=== PATIENT | female | born 1995 | race Caucasian/White ===

== ENCOUNTER 2017-03-11 19:04 | Emergency (ER) | payer MEDICAID ==
[~2017-03-11] VITALS: Ht 160 cm; Wt 75.7 kg
[2017-03-11 19:20] VITALS: BP_SYST 115
--- NOTE | 2017-03-11 19:25 | NUR ---
Pt placed to ER bed 05, report given to MEAGHAN Black.
[2017-03-11] MEDS ORDERED: ONDANSETRON HCL 4 MG/2 ML VIAL IVP ONE (19:30)
[2017-03-11] MEDS ORDERED: NACL 0.9% 1,000 ML IV ONE (19:30)
[2017-03-11] MEDS ORDERED: MAG HYDROX/AL HYDROX/SIMETH 30 ML, LIDOCAINE VISCOUS 2% 15ML (PO) 10 ML, BELLADONNA ALK... PO ONE ×3 (19:30)
[2017-03-11] MEDS ORDERED: KETOROLAC TROMETHAMINE 30 MG VIAL IVP ONE (19:30)
--- NOTE | 2017-03-11 19:30 | NUR ---
Pt states having upper abdominal pain since yesterday, states pain scale 7/10. Pt states cramping pain radiates down to lower abdomen area. Pt states having approximately 6 episodes of diarrhea since earlier today. Abdomen round, tender to palpation in LUQ and RUQ. Pt denies any other complaints.
--- NOTE | 2017-03-11 19:31 | NUR ---
ER Dr. Power at bedside examining patient.
[2017-03-11 19:43] LABS: EOSINOPHILS # (AUTO) 0.1 K/uL (0.0-0.4); MEAN CORPUSCULAR VOLUME 88 fL (79.0-98.0)
[2017-03-11 19:47] LABS: BASOPHILS # (AUTO) 0.1 K/uL (0.0-0.2); BASOPHILS % (AUTO) 0.7 % (0.0-2.0); EOSINOPHILS % (AUTO) 0.6 % (0.0-4.0); HEMOGLOBIN 13.3 g/dL (12.0-16.0); LYMPHOCYTES # (AUTO) 1.8 K/uL (1.0-5.5); LYMPHOCYTES % (AUTO) 13.8 % (20.5-51.5); MEAN CORPUSCULAR HEMOGLOBIN 29 pg (27-31); MEAN CORPUSCULAR HGB CONC 33 % (32-36); MONOCYTES # (AUTO) 0.9 K/uL (0.0-1.0); MONOCYTES % (AUTO) 6.5 % (1.7-9.3); NEUTROPHILS # (AUTO) 10.5 K/uL (1.8-7.7); NEUTROPHILS % (AUTO) 78.4 % (40.0-70.0); PLATELET COUNT (AUTO) 280 K/uL (130-430); RED BLOOD CELL COUNT(AUTO) 4.56 MIL/uL (4.2-6.2); RED CELL DISTRIBUTION WIDTH 12.4 % (9.0-15.0); WHITE BLOOD COUNT (AUTO) 13.4 K/uL (4.8-10.8)
--- NOTE | 2017-03-11 19:50 | NUR ---
MAGALIE Chavarria at bedside examining patient.
[2017-03-11 19:55] LABS: CALCIUM 9.2 mg/dL (8.4-11.0); CREATININE 1.05 mg/dL (0.55-1.30); POTASSIUM 3.9 mmol/L (3.5-5.1)
[2017-03-11 19:56] LABS: BILIRUBIN,URINE NEGATIVE (NEGATIVE); CLARITY/URINE SL CLOUDY (CLEAR); COLOR,URINE YELLOW (YELLOW); GLUCOSE,URINE NEGATIVE (NEGATIVE); KETONES,URINE NEGATIVE (NEGATIVE); LEUKOCYTE ESTERASE ,URINE 2+ (NEGATIVE); NITRITE, URINE NEGATIVE (NEGATIVE); PROTEIN URINE NEGATIVE (NEGATIVE); UROBILINOGEN,URINE 0.2 (0.2-1.0)
[2017-03-11 19:59] LABS: ALBUMIN 3.6 g/dL (3.4-4.8); TOTAL BILIRUBIN 0.7 mg/dL (0.0-1.0); TOTAL PROTEIN, SERUM 7.8 g/dL (6.4-8.3)
[2017-03-11 19:59] LABS: BLOOD, URINE TRACE (NEGATIVE)
[2017-03-11 20:08] LABS: BACTERIA,URINE MODERATE /HPF (None Seen); MUCUS,URINE 3+ /LPF (None Seen); TRICHOMONAS,URINE Moderate /HPF (None Seen); WBC,URINE 50-80 /HPF (0-3)
--- NOTE | 2017-03-11 20:10 | NUR ---
# 22 gauge angiocath placed to L AC. Use of asceptic technique. Blood return noted. Flushed with 10 cc of normal saline. No evidence of infiltration noted. Patient tolerated well.
[2017-03-11 20:12] LABS: BARBITURATE, URINE NEGATIVE (NEG <=200); BENZODIAZEPINE, URINE NEGATIVE (NEG <=150); CANNABINOID, URINE NEGATIVE (NEG <=50); COCAINE, URINE NEGATIVE (NEG <=150); METHAMPHETAMINES SCREEN,URINE NEGATIVE (NEG <=500); OPIATE, URINE NEGATIVE (NEG <=100); PHENCYCLIDINE SCREEN,URINE NEGATIVE (NEG <=25); UR TRICYCLIC ANTIDEPRESSANTS NEGATIVE (NEG <=300); URINE AMPHETAMINE NEGATIVE (NEG <=500); URINE METHADONE NEGATIVE (NEG <=200); URINE OXYCODONE SCREEN NEGATIVE (NEG <=100); URINE PROPOXYPHENE SCREEN NEGATIVE (NEG <=300)
[2017-03-11] MEDS ORDERED: cefTRIAXone 1 GM in D5W 50 ML IV ONE (20:30)
[2017-03-11] MEDS ORDERED: cefTRIAXone 1 GM VIAL ONE (20:30)
--- NOTE | 2017-03-11 20:45 | NUR ---
No adverse effects to medications noted. Will continue to monitor pt.
--- NOTE | 2017-03-11 21:25 | NUR ---
Pt stable, no signs of distress noted.
[2017-03-11] MEDS ORDERED: ACETAMINOPHEN 325 MG TABLET PO ONE (22:15)
[2017-03-11] MEDS ORDERED: FAMOTIDINE 20 MG TABLET PO ONE (22:15)
--- NOTE | 2017-03-11 22:40 | NUR ---
No adverse effects to medications noted. Will continue to monitor pt.
[2017-03-11 23:20] VITALS: BP_SYST 119
--- NOTE | 2017-03-11 23:20 | NUR ---
Patient given written and verbal discharge instructions and verbalizes understanding. ER MD discussed with patient the results and treatment provided. Patient in stable condition. ID arm band removed. IV catheter removed intact and dressing applied, no active bleeding. Rx of Keflex given. Patient educated on pain management and to follow up with PMD. Pain Scale 0/10. Opportunity for questions provided and answered.
--- NOTE | 2017-03-11 23:21 | NUR ---
Note undone in EDM - 03/11/17 at 2322 by CHARLEEN Patient given written and verbal discharge instructions and verbalizes understanding. ER discussed with patient the results and treatment provided. Patient in stable condition. ID arm band removed. IV catheter removed intact and dressing applied, no active bleeding. Rx of Keflex given. Patient educated on pain management and to follow up with PMD. Pain Scale 0/10. Opportunity for questions provided and answered.
== END 2017-03-11 23:20 | disposition home or self-care (01) ==
LOC: SED 19:04
DX: O23.41 Unspecified infection of urinary tract in pregnancy, first trimester (principal); Z3A.01 Less than 8 weeks gestation of pregnancy
CPT/HCPCS: 36415; 76801; 76817; 80053; 80307; 81000; 81025; 82150; 83690; 85025; 87086; 96365; 99285; J0696; J7030; J7060; 87186-TC